=== PATIENT | male | born 1975 | race Caucasian/White ===

== ENCOUNTER 2020-06-12 23:30 | Inpatient (IN) | payer OTHER ==
[~2020-06-12] VITALS: Ht 175.3 cm; Wt 99.8 kg
[2020-06-12 23:54] LABS: HEMOGLOBIN 18.6 gm/dl (14.0-17.5); RED BLOOD COUNT 5.44 M/UL (4.20-5.50); WHITE BLOOD COUNT 15.6 K/UL (4.5-11.0)
[2020-06-13 00:18] LABS: BUN/CREATININE RATIO 15 (0-10)
[2020-06-13] MEDS ORDERED: ADDERALL 30 MG30 MG PO (02:40)
[2020-06-13 04:53] LABS: HEMOGLOBIN 18.5 gm/dl (14.0-17.5); RED BLOOD COUNT 5.5 M/UL (4.20-5.50); WHITE BLOOD COUNT 15.3 K/UL (4.5-11.0)
[2020-06-13 05:28] LABS: BUN/CREATININE RATIO 21 (0-10)
[2020-06-13 11:44] LABS: HEMOGLOBIN 18.7 gm/dl (14.0-17.5); RED BLOOD COUNT 5.51 M/UL (4.20-5.50); WHITE BLOOD COUNT 12.3 K/UL (4.5-11.0)
[2020-06-13 12:20] LABS: BUN/CREATININE RATIO 17 (0-10)
[2020-06-14 05:03] LABS: HEMOGLOBIN 17.8 gm/dl (14.0-17.5); RED BLOOD COUNT 5.3 M/UL (4.20-5.50); WHITE BLOOD COUNT 13.3 K/UL (4.5-11.0)
[2020-06-14 05:24] LABS: BUN/CREATININE RATIO 18 (0-10)
[2020-06-15 03:04] LABS: HEMOGLOBIN 17.8 gm/dl (14.0-17.5); RED BLOOD COUNT 5.24 M/UL (4.20-5.50); WHITE BLOOD COUNT 11.1 K/UL (4.5-11.0)
[2020-06-15 03:30] LABS: BUN/CREATININE RATIO 19 (0-10)
[2020-06-15] MEDS ORDERED: ATORVASTATIN CA20 MG PO (09:38)
[2020-06-15] MEDS ORDERED: BRILINTA 90 MG90 MG PO (09:38)
[2020-06-15] MEDS ORDERED: ASPIRIN EC81 MG PO (09:38)
[2020-06-15] MEDS ORDERED: ALPRAZOLAM0.5 MG PO (09:38)
[2020-06-15] MEDS ORDERED: NICOTINE PATCH1 EAC2 TD (09:38)
[2020-06-15] MEDS ORDERED: FLECTOR1 EAC1 TOP (09:38)
[2020-06-15] MEDS ORDERED: LOPRESSOR 25 MG25 MG PO (09:38)
[2020-06-15] MEDS ORDERED: GABAPENTIN300 MG PO (09:38)
[2020-06-15] MEDS ORDERED: ACETAMINOPHEN-1 EAC1 PO (09:38)
== END 2020-06-15 10:21 | disposition home or self-care (01) | DRG 247 ==
LOC: ER1 23:30 → CDU 23:43 → CCU 23:43 → PROG CARE 06-14 18:26
PROVIDERS: Emergency Medicine; Internal Medicine; Physician Assistant; ADMIT Internal Medicine Interventional Cardiology
PROC: 4A023N7 Measurement of Cardiac Sampling and Pressure, Left Heart, Percutaneous Approach (ICD-10-PCS; principal; 2020-06-13)
PROC: 027036Z Dilation of Coronary Artery, One Artery with Three Drug-eluting Intraluminal Devices, Percutaneous Approach (ICD-10-PCS; 2020-06-13)
PROC: B211YZZ Fluoroscopy of Multiple Coronary Arteries using Other Contrast (ICD-10-PCS; 2020-06-13)
DX: I21.19 ST elevation (STEMI) myocardial infarction involving other coronary artery of inferior wall (principal); M25.511 Pain in right shoulder; E87.6 Hypokalemia; Z20.822 Contact with and (suspected) exposure to COVID-19; F90.9 Attention-deficit hyperactivity disorder, unspecified type; R00.0 Tachycardia, unspecified; D72.829 Elevated white blood cell count, unspecified; F17.210 Nicotine dependence, cigarettes, uncomplicated; I95.9 Hypotension, unspecified; D75.1 Secondary polycythemia; I71.2 Thoracic aortic aneurysm, without rupture; Z79.899 Other long term (current) drug therapy; Z79.82 Long term (current) use of aspirin
CPT/HCPCS: ECHO; 36415; 71045; 71275; 72125; 73200; 80048; 80053; 82550; 82553; 83735; 83874; 84484; 85025; 85347; 87635; 93005; 93306; 96374; 96375; 99285; C1725; C1769; C1874; C1887; J0461; J1644; J1650; J1940; J2270; J2405; J3246; J3475; J7040; Q9965; Q9967